=== PATIENT | female | born 1950 | race Caucasian/White ===

== ENCOUNTER 2017-08-29 13:35 | Outpatient (CLI) | payer MEDICARE ==
--- NOTE | 2017-08-29 16:44 | MRI ---
LEFT SHOULDER MRI WITHOUT IV CONTRAST: Date: 08/29/17 HISTORY: 67-year-old female with left shoulder pain since May when she fell. TECHNIQUE: Multiplanar, multisequence MRI examination of the left shoulder is performed. FINDINGS: There are some AC joint arthrosis changes with very mild fat stranding in the subacromial bursa. Ther e appears to be a high grade, bursal-sided, partial thickness tear of the supraspinatus tendon at the insertion. The infraspinatus tendon appears intact. Biceps tendon is intact. The subscapularis tendo n has a slightly attenuated appearance, but does not show any evidence for an acute tear or retractio n. The posterior superior labrum has a somewhat blunted appearance, possibly related to some degenera tive fraying. IMPRESSION: AC joint arthrosis. Mid to high grade, bursal-sided, partial thickness insertional tear of the supras pinatus tendon without retraction. Slightly blunted posterior superior labrum. POS: [facility]
== END 2017-08-29 13:36 | disposition home or self-care (01) ==
LOC: SCSMRI 13:35
PROVIDERS: ATTEND Orthopaedic Surgery
DX: M25.512 Pain in left shoulder (principal); M19.012 Primary osteoarthritis, left shoulder; M75.102 Unspecified rotator cuff tear or rupture of left shoulder, not specified as traumatic

== ENCOUNTER 2017-12-09 08:23 | Emergency (ER) | payer MEDICARE ==
[2017-12-09] MEDS ORDERED: diphenhydrAMINE 50 MG/ML VIAL ONE (09:03)
[2017-12-09] MEDS ORDERED: Promethazine HCl 25 MG/ML VIAL ONE (09:03)
[2017-12-09] MEDS ORDERED: Acetaminophen 500 MG TAB ONE (09:03)
[2017-12-09 09:04] LABS: #Lymphocytes 1.5 thou/uL (1.20-3.40); #Monocytes 0.3 thou/uL (0.11-0.59); #Neutrophils 7.5 thou/uL (1.40-6.50); %Basophils 0.2 % (0.0-1.0); %Eosinophils 0.3 % (0.0-10.0); %Lymphocytes 16.1 % (21.0-51.0); %Monocytes 3.6 % (0.0-10.0); %Neutrophils 79.8 % (42.0-75.0); Hemoglobin 15.6 g/dL (12.0-16.0); Mean Corpuscular HGB CONC 33.5 g/dL (32.0-36.0); Mean Corpuscular Hemoglobin 28.2 pg (27.0-31.0); Mean Corpuscular Volume 84.2 fl (81.0-99.0); Mean Platelet Volume 6.7 fL (7.4-10.4); Platelet Count 284 thou/uL (130-400); RBC Distribution Width 11.7 % (11.5-14.5); Red Blood Cell (RBC) Count 5.54 mill/uL (4.20-5.40); White Blood Cell (WBC) Count 9.4 thou/uL (4.8-10.8)
--- NOTE | 2017-12-09 09:28 | CT ---
BRAIN CT WITHOUT IV CONTRAST: Date: 12/09/17 HISTORY: 67-year-old female with history of headache and vomiting. FINDINGS: No focal mass or midline shift. No intra or extra-axial hemorrhage. Sinuses and mastoids are clear. IMPRESSION: No acute intracranial process. No mass or bleed. POS: [facility]
[2017-12-09 09:29] LABS: ALT (SGPT) 173 U/L (8-55); AST (SGOT) 93 U/L (5-34); Albumin 4.5 g/dL (3.4-4.8); Alkaline Phosphatase 148 U/L (40-150); Anion Gap 18 mmol/L (10-20); BUN (Urea Nitrogen) 12 mg/dL (9.8-20.1); Bilirubin, Total 0.8 mg/dL (0.2-1.2); Calc. Creatinine Clearance 0 mL/min (70-130); Calcium 9.6 mg/dL (7.8-10.44); Carbon Dioxide 20 mmol/L (23-31); Chloride 103 mmol/L (98-107); Estimated GFR-MDRD 70; Globulin 2.3 g/dL (2.4-3.5); Glucose 83 mg/dL (80-115); Potassium 4.3 mmol/L (3.5-5.1); Protein, Total 6.8 g/dL (6.0-8.3); Sodium 137 mmol/L (136-145)
[2017-12-09] MEDS ORDERED: Ketorolac Tromethamine 30 MG/ML VIAL ONE (10:15)
[2017-12-09] MEDS ORDERED: Lidocaine 1% w/Epinephrine 1:100K 20 ML VIAL ONE (10:15)
--- NOTE | 2017-12-09 10:41 | RAD ---
LUMBAR SPINE 3 VIEWS: Date: 12/09/17 HISTORY: 67-year-old female with headache, vomiting, and low back pain. FINDINGS: Dextroscoliosis of the lumbar vertebral column is noted with multilevel disc osteophytosis and facet arthrosis with marked joint space loss involving L5-S1, L3-L4, and L2-L3 levels. No evidence for acut e fracture. IMPRESSION: Extensive spondylosis. Moderate right lumbar dextroscoliosis. POS: [facility]
--- NOTE | 2017-12-09 12:16 | RAD ---
FLUOROSCOPICALLY GUIDED LUMBAR PUNCTURE: Date: 12/09/17 HISTORY: 67-year-old female with history of headache. TECHNIQUE: Following informed consent, the patient's back was prepped and draped in the usual sterile fashion. L ocal anesthesia was obtained with 1% Xylocaine. A 20 gauge spinal needle was introduced at L5-S1. Alok ar, colorless spinal fluid was obtained in four separate tubes easily. The patient tolerated the proc edure well. IMPRESSION: Successful lumbar puncture. Patient was moved back to the ER with orders for post lumbar puncture. POS: [facility]
[2017-12-09 13:08] LABS: CSF Source CSF; Clarity Clear (Clear); RBC Count - Manual 0 /cumm (None Seen); Tube # 4; WBC/NonHematics Count - Manual 0 /cumm (0-5)
== END 2017-12-09 13:55 | disposition home or self-care (01) ==
LOC: ERS 08:23
DX: R51 Headache (principal); M06.9 Rheumatoid arthritis, unspecified; E03.9 Hypothyroidism, unspecified; F32.9 Major depressive disorder, single episode, unspecified; Z79.899 Other long term (current) drug therapy
CPT/HCPCS: 62270; 70450; 72100; 80053; 82945; 83605; 84157; 85025; 87070; 87205; 89051; 96365; 96366; 96375; J1200; J1885; J2001; J2550